=== PATIENT | male | born 1995 | race Caucasian/White ===

== ENCOUNTER 2024-11-05 18:25 | Emergency (ER) | payer SELFPAY ==
[~2024-11-05] VITALS: Ht 172.7 cm; Wt 77.0 kg
[2024-11-05 18:39] VITALS: BP 140/98; PULSE 98; RESP 18; TEMP 98.2; O2SAT 99
== END 2024-11-05 21:00 | disposition left against medical advice (07) ==
LOC: EMS 18:25
DX: F20.9 Schizophrenia, unspecified (principal); Z53.21 Procedure and treatment not carried out due to patient leaving prior to being seen by health care provider